=== PATIENT | female | born 1985 | race Caucasian/White ===

== ENCOUNTER 2018-03-07 18:07 | Day surgery (SDC) | payer BC ==
[2018-03-07 18:43] VITALS: BP 115/78; TEMP 98.6; BMI 47.2
[2018-03-07 21:09] LABS: Amnisure Test No Membranes Rupture (No Rupture)
[2018-03-07 21:10] LABS: Amnisure Internal Control QC ACCEPTABLE (ACCEPTABLE)
--- NOTE | 2018-03-08 02:26 | PRG ---
DATE OF SERVICE: 03/07/2018 PRIMARY COLLATERAL CLERK: Dr. Rod Fung. CHIEF COMPLAINT: Abdominal pain and leakage of fluid. HISTORY OF PRESENT ILLNESS: The patient is a 32-year-old G4, P2 female with an intrauterine at 37 weeks and 5 days, presenting with 1-day history of leakage of fluid and increased abdominal pain. The patient reports that she was going to the bathroom and felt like she had a lot more fluid leak out than just what she thought she was seeing. The patient has since not had any more leakage of fluids, but is here for evaluation. She also reports she has been having uterine contractions for the last several weeks and just became more intense today. The patient denies fever. She does report headache. Denies falls, chest pain. She does report intermittent shortness of breath that she attributes to the present state. Reports nausea with vomiting in the morning, which has been present throughout her . Reports intermittent constipation. Denies diarrhea. Denies any rashes, hip problems, knee problems or muscle weakness. Denies vaginal bleeding, however, reports for leakage of fluid and denies urinary urgency or frequency. PAST MEDICAL HISTORY: History of depression. PAST SURGICAL HISTORY: She has had one prior , tubal ligation with subsequent reversal and a tonsillectomy. SOCIAL HISTORY: She denies drug, alcohol, or tobacco use. ALLERGIES: NO KNOWN DRUG ALLERGIES. MEDICATIONS: Zoloft and vitamins. OB LABS: Blood type is 0 positive. RPR is nonreactive, HIV is nonreactive as well in the third trimester. Her 1-hour Glucola was 108. Antibody screen is negative. She is rubella immune. Hepatitis B surface antigen is negative in the first trimester. RPR is negative in the first trimester. HIV is negative in the first trimester. REVIEW OF SYSTEMS: Per HPI. PHYSICAL EXAMINATION: VITAL SIGNS: Blood pressure 120/76, heart rate of 109, respiratory rate of 18, temperature 98.6. GENERAL: She appears to be in no acute distress. She is alert and oriented, cooperative, and pleasant to interact with. HEAD: Normocephalic, atraumatic. LUNGS: Clear to auscultation bilaterally. HEART: Regular rate and rhythm. ABDOMEN: Soft, gravid, and nontender. EXTREMITIES: Nontender, nonedematous. CERVICAL: Per nursing staff, fingertip thick and -4 station. heart tracing for abdominal pain in , fetus noted to have baseline in the 130s with moderate long-term variability, positive 15 x 15 accelerations, and no decelerations. Tocometer shows occasional contractions about every 10 to 15 minutes with some irritability. AmniSure test is negative, reported by her primary OB this evening are bile acids that were drawn for excessive itching and noted to be borderline, otherwise has normal LFTs. ASSESSMENT AND PLAN: The patient is a 32-year-old female with an intrauterine at 37 weeks and 5 days, who is presenting with uterine contractions and leakage of fluids. There is no evidence at this time of rupture of membranes or labor. The patient is being discharged to home. Dr. Fung has been made aware and is scheduling her in the near future. Fetus is reassuring and reactive. Job ID: [id number]
== END 2018-03-07 21:32 | disposition home health service (06) ==
LOC: L&D/OP 18:07
PROVIDERS: ATTEND Obstetrics & Gynecology
DX: O47.1 False labor at or after 37 completed weeks of gestation (principal); Z3A.37 37 weeks gestation of pregnancy
CPT/HCPCS: 84112; 99283

== ENCOUNTER 2018-03-09 05:03 | Inpatient (IN) | payer BC ==
[2018-03-09] MEDS ORDERED: CEFAZOLIN/Water 2 GM/20 ML SYRINGE SLOW IVP SCH (05:54)
[2018-03-09] MEDS ORDERED: Ondansetron PF 4 MG/2 ML Vial IVP PRN ×3 (05:54→13:00)
[2018-03-09] MEDS ORDERED: Bicitra 30 ML UDCUP PO SCH (05:54)
[2018-03-09] MEDS ORDERED: Promethazine HCl 25 MG/ML VIAL IM PRN ×2 (05:54→08:56)
[2018-03-09] MEDS ORDERED: CEFAZOLIN 2 GM/50 ML BAG IV SCH (06:15)
[2018-03-09 06:21] LABS: Hemoglobin 11.7 g/dL (12.0-16.0); Mean Corpuscular HGB CONC 32.8 g/dL (32.0-36.0); Mean Corpuscular Hemoglobin 28.9 pg (27.0-31.0); Mean Corpuscular Volume 88.2 fL (78.0-98.0); Mean Platelet Volume 9.2 fL (7.4-10.4); Platelet Count 216 thou/uL (130-400); RBC Distribution Width 13.5 % (11.5-14.5); Red Blood Cell (RBC) Count 4.06 mill/uL (4.20-5.40); White Blood Cell (WBC) Count 10.3 thou/uL (4.8-10.8)
[2018-03-09 06:29] VITALS: BMI 47.2
[2018-03-09 06:44] LABS: HBSAg Index 0.23 S/CO (0-0.99); Hep B Surf Ag Non-Reactive S/CO (NonReactive); Syphilis Antibody Nonreactive (Nonreactive); Syphilis Antibody Index 0.02 S/CO (<1.00 Non-Reactive)
[2018-03-09] MEDS ORDERED: Fentanyl 100 MCG/2 ML VIAL ONE (06:44)
[2018-03-09] MEDS ORDERED: Morphine PF 1 MG/ML SYR ONE (06:44)
[2018-03-09] MEDS ORDERED: Succinylcholine Chloride 20 MG/ML 10 ml SYRINGE FS ONE (06:45)
[2018-03-09] MEDS ORDERED: Ondansetron PF 4 MG/2 ML Vial ONE ×2 (06:45→11:20)
[2018-03-09] MEDS ORDERED: Oxytocin 10 UNITS/ML VIAL ONE ×3 (06:45→08:38)
[2018-03-09] MEDS ORDERED: Ketorolac Tromethamine 30 MG/ML VIAL ONE ×2 (06:45→11:20)
[2018-03-09] MEDS ORDERED: ePHEDrine/0.9% NaCl/PF SYRINGE 50 mg/10 ml ONE ×4 (06:45→11:20)
[2018-03-09] MEDS ORDERED: Bupivacaine 0.75% W/DEXTROSE 8.25% 2 ML AMP ONE (06:45)
[2018-03-09] MEDS ORDERED: Lidocaine 1% PF 5 ML VIAL ONE (06:46)
[2018-03-09] MEDS ORDERED: PHENYLEPHRINE-NS 100 MCG/ML 10 ML SYRINGE ONE ×2 (06:47→11:20)
[2018-03-09] MEDS: Lactated Ringer's 1,000 ML IV SCH ×2 (07:28→13:13)
--- NOTE | 2018-03-09 07:36 | PDOC.LDHP ---
Labor and Delivery H&P Chief complaint: scheduled section HPI: Pt is a 32yo @ 38 weeks here for RCS. Pt was scheduled for 39 weeks but over the last week has complained of increased itching all over her body, reports rubbing lip balm on her neck in effort to help the itching, and with a bile acid of 10 last week. Yesterday in the office the patient had BP 140/90 on intake and then again on repeat BP. With elevated BP and progressive itching we discussed the indication for delivery. Current gestational age (weeks): 38 Due date: 03/23/18 Grav: 4 Para: 2 OB History Details: hx of macrosomia, hx of x 1 and CS x 1 hx of BTL w reversal and spont Current complications: gestational hypertension, other (cholestasis) Abnormal US findings: No Past Medical History: depression obesity Current medications: pre-quentin vitamins, other (zoloft 100mg a day) Previous surgical history: low tranverse CS, other (BTL and BTL reversal) Allergies/Adverse Reactions: Allergies Allergy/AdvReac Type Severity Reaction Status Date / Time No Known Allergies Allergy Verified 03/09/18 06:30 Social history: none - Physical Exam Vital signs reviewed and normal: yes General: resting Heart: RRR Lungs: CTAB Abdomen: gravid Extremeties: no edema FHT: variability present - OB Labs Blood type: O RH: positive Antibody Screen: negative HIV: negative RPR: negative HEPSAg: negative 1 hour GCT: negative GBS: negative Rubella: immune - Assessment L&D Assessment: scheduled repeat section - Plan Plan: admit to L&D, to OR for section, informed consent obtained, anesthesia consult for pain management -: A/P: 32yo @ 38 weeks with hx of macrosomia, desires RCS, cholestasis of and suspected GHTN.
--- NOTE | 2018-03-09 08:33 | PDOC.OPDEL ---
OB Operative/Delivery Note Delivery Dr/Surgeon: Kenton Assist: Shelia Pre-Delivery Diagnosis: scheduled section (cholestasis of preg, elevated BP @ 38 weeks) Procedure/Post Delivery Dx: repeat low transverse CS Weeks gestation: 38 Anesthesia: spinal - Findings A Sex: female Weight: 9 lb 14 oz - 1 min: 8 - 5 min: 9 - Additional Findings/Plan Placenta delivered: spontaneous findings: low transverse hysterotomy without extension, normal uterus, normal tubes, normal ovaries Estimated blood loss: 750ml Compilations/Other Findings: Vacuum assisted delivery of head Post delivery plan: routine recovery
[2018-03-09] MEDS ORDERED: Naloxone HCl 0.4 mg/ml Vial IVP PRN ×2 (08:56)
[2018-03-09] MEDS ORDERED: HYDROmorphone 2 MG/ML VIAL SLOW IVP PRN (08:56)
[2018-03-09] MEDS ORDERED: Naloxone HCl 0.4 mg/ml Vial IV PRN (08:56)
[2018-03-09] MEDS ORDERED: diphenhydrAMINE 50 MG/ML VIAL IVP PRN (08:56)
[2018-03-09] MEDS ORDERED: Promethazine HCl 25 MG SUPP PR PRN (08:56)
[2018-03-09] MEDS ORDERED: L&D-Morphine 4 MG/ML VIAL SLOW IVP PRN (08:56)
[2018-03-09] MEDS ORDERED: Ketorolac Tromethamine 30 MG/ML VIAL IVP PRN (08:56)
[2018-03-09] MEDS ORDERED: Meperidine HCl/PF 25 MG/ML VIAL SLOW IVP PRN (08:56)
[2018-03-09] MEDS ORDERED: Ondansetron HCl/PF 4 MG/2 ML Vial IVP PRN (08:56)
[2018-03-09] MEDS ORDERED: Eucerin (Mineral Oil/Petrolatum,White) 30 gm Jar TOP PRN (08:56)
[2018-03-09] MEDS ORDERED: Communication Order-Pharmacy FS SCH (09:00)
[2018-03-09] MEDS ORDERED: Ketorolac Tromethamine 30 MG/ML VIAL IVP SCH (09:00)
[2018-03-09] MEDS ORDERED: HYDROcodone/Acetaminophen 5/325 mg Tablet PO PRN ×2 (13:00)
[2018-03-09] MEDS ORDERED: Adacel (T-DAP) 0.5 ML VIAL IM ONE (13:00)
[2018-03-09] MEDS ORDERED: diphenhydrAMINE 25 MG CAP PO PRN (13:00)
[2018-03-09] MEDS ORDERED: Meperidine HCl/PF 25 MG/ML VIAL IM PRN (13:00)
[2018-03-09] MEDS ORDERED: NS / Oxytocin 40 units/1000ml 1,000 ML IV SCH (13:00)
[2018-03-09] MEDS ORDERED: Lanolin Ointment 7 GM TUBE TOP PRN (13:00)
[2018-03-09] MEDS ORDERED: Bisacodyl 10 MG SUPP PR PRN (13:00)
[2018-03-09] MEDS ORDERED: Docusate Calcium (SURFAK) 240 MG CAP PO SCH (13:15)
[2018-03-09] MEDS ORDERED: Prenatal Vitamin 1 TAB PO SCH (13:15)
[2018-03-09] MEDS ORDERED: Ibuprofen 800 MG TAB PO SCH (14:00)
[2018-03-09] MEDS: Ferrous Sulfate 325 MG TAB PO SCH (14:23)
--- NOTE | 2018-03-09 17:40 | OP ---
DATE OF PROCEDURE: 03/09/2018 PREOPERATIVE DIAGNOSES: 1. A 32-year-old, G4, P2-0-1-2, at 38 weeks with previous section and history of macrosomia. 2. Cholestasis of . 3. Elevated blood pressures at term. POSTOPERATIVE DIAGNOSES: 1. A 32-year-old, G4, P2-0-1-2, at 38 weeks with previous section and history of macrosomia. 2. Cholestasis of . 3. Elevated blood pressures at term. PROCEDURE PERFORMED: Repeat low-transverse section with delivery assisted by vacuum cup. DISTRICT LEADER: Melissa Bass MD ANESTHESIA: Spinal. COMPLICATIONS: None. ESTIMATED BLOOD LOSS: 750 mL. FINDINGS: 1. Low transverse hysterotomy without extension. 2. Vigorous female , Apgars 8 and 9, weight 9 pounds and 14 ounces, to nursery. 3. Normal appearing uterus, tubes, and ovaries bilaterally. 4. No intraabdominal adhesive disease. 5. Surgical site, hemostatic. 6. Fundus firm after delivery of placenta and closure of hysterotomy. DESCRIPTION OF PROCEDURE: The patient was taken back to the OR with IV fluids running. She sat up at the bedside for spinal anesthesia and was placed in dorsal supine position with a left lateral tilt after the spinal anesthesia was placed. Preciado catheter was placed using sterile technique. A 2 g of Ancef were given. The abdomen was prepped and draped in normal fashion for section. The surgeons were scrubbed in. The abdomen was tested and the anesthesia was found to be adequate. A Pfannenstiel skin incision was made with a scalpel. The skin incision was carried down through the subcutaneous tissue to the fascia. Once the fascia was reached, it was incised in the midline, extended superolaterally using curved Yu scissors. Scout clamps were placed at the superior border of the fascia, which was sharply and bluntly dissected off the rectus abdominis muscles. This was also completed at the inferior edge of the fascia, dissecting off the rectus abdominis muscles to allow a quick space for delivery of the . The rectus muscles were bluntly in the midline. The peritoneum was blunted entered and stretched laterally. An Fernando O retractor was placed into the peritoneal cavity for retraction, visualization, and protection of the wound. A bladder flap was created and the bladder was dissected away from the planned hysterotomy site. Low transverse hysterotomy was made with a scalpel. The hysterotomy was bluntly entered and stretched using a Crede maneuver. Amniotomy was performed with copious clear fluid noted. Due to maternal obesity, fundal pressure was not effective in bringing the infant's head out of the hysterotomy. For this reason, a mushroom-shaped vacuum cup was placed over the flexion point of the head. With gentle traction, the head was delivered without difficulty through the hysterotomy. There was one pop-off due to poor suction contact on the first application. After the head was delivered, the shoulders, and the body were delivered without difficulty. The nose and mouth were suctioned. The cord was doubly clamped and cut and the infant was handed off to the special care nurses in attendance. Cord blood was collected. The placenta was delivered. The uterus was exteriorized and massage firm and cleared of clot and debris. The uterus was returned to the abdominal cavity. The hysterotomy was inspected with no extension noted. The hysterotomy was then closed with Monocryl suture in a running locked fashion. After the hysterotomy was closed, it was inspected with no areas of bleeding noted. The fundus was palpated and noted to be firm. The Fernando O retractor was removed from the abdominal cavity and the first count was current. The muscle and fascia were inspected with no areas of bleeding noted. The fascia was reapproximated with PDS suture from corner to corner and tied subsequently in the midline. Subcutaneous tissue was then irrigated and dried. It was inspected with no bleeding noted. Subcutaneous tissue was reapproximated with plain gut suture. The skin was closed with 4-0 Monocryl and dressed with Dermabond dressing. The patient tolerated the procedure well. The counts were correct and there were no complications. Job ID: [id number]
[2018-03-09] MEDS: Ibuprofen 800 MG TAB PO SCH (20:35)
[2018-03-09] MEDS: Docusate Calcium (SURFAK) 240 MG CAP PO SCH (20:36)
[2018-03-09] MEDS: Simethicone Chewable 80 MG TAB PO PRN (20:36)
[2018-03-10] MEDS: Ibuprofen 800 MG TAB PO SCH ×2 (04:23→14:59)
--- NOTE | 2018-03-10 07:24 | PDOC.PP ---
Post Progress Note Post Day #: 1 Subjective: Patient denies any complaints. She is ambulating, voiding, and tolerating PO well. She reports she hasn't eaten a full meal of solid food yet, but plans to do this for breakfast. She reports some mild abdominal pain, mostly with movement. Reports minimal vaginal bleeding. She is trying to breast feed, however her baby is in the NICU and is not always latching well. She denies flatus. PO intake tolerated: yes Flatus: no Ambulation: yes Vital Signs (12 hours) Temp Pulse Resp BP Pulse Ox 03/10/18 04:00 97.8 F 91 16 114/67 03/09/18 23:56 98.2 F 92 16 110/59 L 03/09/18 23:00 98.2 F 95 20 110/60 03/09/18 20:00 97.7 F 95 20 121/56 L 96 Weight Weight 124.738 kg - Physical Examination General: NAD Cardiovascular: no m/r/g, RRR Respiratory: clear to auscultation bilaterally, non-labored breathing Abdominal: + bowel sounds, lochia (minimal), no distention, appropriately TTP Fundus firm & at: 1 cm below the umbilicus Skin: CS incision dry & intact, no rash Neurological: no gross focal deficits Psychiatric: A&Ox3, normal affect Result Diagrams: 03/09/18 06:01 Additional Labs: Post Labs Blood Type O POSITIVE 03/09/18 06:30 Hep Bs Antigen Non-Reactive S/CO (NonReactive) 03/09/18 06:01 (1) Term delivered Code(s): O80 - ENCOUNTER FOR FULL-TERM UNCOMPLICATED DELIVERY Status: Acute Comment: 32 y/o delivered via rLTCS at 38 WGA -Continue routine post- care -Pain control with ibuprofen and norco prn -Encourage ambulation -Encourage breast feeding -ADAT (2) Cholestasis during Code(s): O26.619 - LIVER AND BILIARY TRACT DISORD IN , UNSP TRIMESTER; K83.1 - OBSTRUCTION OF BILE DUCT Status: Acute Qualifiers: Trimester: unspecified trimester Qualified Code(s): O26.619 - Liver and biliary tract disorders in , unspecified trimester; K83.1 - Obstruction of bile duct Comment: s/p delivery
[2018-03-10] MEDS: Ferrous Sulfate 325 MG TAB PO SCH ×2 (07:32→16:29)
[2018-03-10 08:48] LABS: Hemoglobin 9.3 g/dL (12.0-16.0); Mean Corpuscular HGB CONC 34.1 g/dL (32.0-36.0); Mean Corpuscular Hemoglobin 30.7 pg (27.0-31.0); Mean Corpuscular Volume 90.1 fL (78.0-98.0); Platelet Count 190 thou/uL (130-400); RBC Distribution Width 13.6 % (11.5-14.5); Red Blood Cell (RBC) Count 3.01 mill/uL (4.20-5.40); White Blood Cell (WBC) Count 10.4 thou/uL (4.8-10.8)
[2018-03-10] MEDS: Prenatal Vitamin 1 TAB PO SCH (08:58)
[2018-03-10] MEDS: Docusate Calcium (SURFAK) 240 MG CAP PO SCH (08:58)
[2018-03-11] MEDS: Simethicone Chewable 80 MG TAB PO PRN (00:49)
[2018-03-11] MEDS: Docusate Calcium (SURFAK) 240 MG CAP PO SCH ×2 (00:49→08:39)
[2018-03-11] MEDS: Ibuprofen 800 MG TAB PO SCH ×4 (00:49→14:28)
[2018-03-11 05:01] VITALS: TEMP 98.2
[2018-03-11] MEDS: Prenatal Vitamin 1 TAB PO SCH (08:39)
[2018-03-11] MEDS: Ferrous Sulfate 325 MG TAB PO SCH (08:39)
[2018-03-11 09:02] VITALS: BP 120/74
== END 2018-03-11 15:45 | disposition home or self-care (01) | DRG 786 ==
LOC: L&D 05:03 → 3SW 13:09
PROVIDERS: ADMIT Obstetrics & Gynecology; ATTEND Obstetrics & Gynecology
PROC: 10D00Z1 Extraction of Products of Conception, Low, Open Approach (ICD-10-PCS; principal; 2018-03-09)
DX: O34.211 Maternal care for low transverse scar from previous cesarean delivery (principal); K83.1 Obstruction of bile duct; O26.613 Liver and biliary tract disorders in pregnancy, third trimester; Z3A.38 38 weeks gestation of pregnancy; Z37.0 Single live birth; R03.0 Elevated blood-pressure reading, without diagnosis of hypertension; O26.893 Other specified pregnancy related conditions, third trimester
CPT/HCPCS: 36415; 51702; 80053; 84112; 85025; 85027; 86780; 86850; 86900; 86901; 87340; 99283; J1885; J2001; J2274; J2405; J2590; J3010; J3490

== ENCOUNTER 2018-12-27 13:19 | Outpatient (CLI) | payer BC | END 2018-12-27 13:20 | disposition home or self-care (01) | LOC: DTY/OP 13:19 | PROVIDERS: ATTEND Surgery | DX: E66.01 Morbid (severe) obesity due to excess calories (principal) | CPT/HCPCS: 97802 ==

== ENCOUNTER 2019-03-15 10:16 | Outpatient (CLI) | payer BC ==
[2019-03-15 17:27] LABS: #Eosinphils 0.2 thou/uL (0.0-0.7); #Lymphocytes 2.2 thou/uL (1.20-3.40); #Monocytes 0.8 thou/uL (0.11-0.59); #Neutrophils 5.9 thou/uL (1.40-6.50); %Basophils 0.4 % (0.0-1.0); %Eosinophils 2.5 % (0.0-10.0); %Lymphocytes 23.5 % (21.0-51.0); %Monocytes 8.8 % (0.0-10.0); %Neutrophils 64.9 % (42.0-75.0); Hemoglobin 11.9 g/dL (12.0-16.0); Mean Corpuscular HGB CONC 32.8 g/dL (32.0-36.0); Mean Corpuscular Hemoglobin 26.5 pg (27.0-31.0); Mean Corpuscular Volume 80.9 fL (78.0-98.0); Mean Platelet Volume 7.5 fL (7.4-10.4); Platelet Count 362 thou/uL (130-400); RBC Distribution Width 13.8 % (11.5-14.5); White Blood Cell (WBC) Count 9.2 thou/uL (4.8-10.8)
[2019-03-15 17:35] LABS: Hemoglobin A1c 5.4 % (4.0-6.0)
[2019-03-15 17:51] LABS: ALT (SGPT) 16 U/L (8-55); AST (SGOT) 20 U/L (5-34); Albumin 4.6 g/dL (3.5-5.0); Alkaline Phosphatase 78 U/L (40-110); Anion Gap 13 mmol/L (10-20); BUN (Urea Nitrogen) 23 mg/dL (7.0-18.7); Bilirubin, Direct 0.1 mg/dL (0.1-0.3); Bilirubin, Total 0.3 mg/dL (0.2-1.2); Calc. Creatinine Clearance 0 mL/min (70-130); Calcium 9.8 mg/dL (7.8-10.44); Carbon Dioxide 26 mmol/L (22-29); Chloride 102 mmol/L (98-107); Estimated GFR-MDRD 79; Glucose 98 mg/dL (70-105); Protein, Total 7.6 g/dL (6.0-8.3); Sodium 137 mmol/L (136-145)
[2019-03-15 17:58] LABS: BHCG - Serum Negative (NEGATIVE); Pregs Control Background? CLEAR/WHITE (CLR/WHITE); Pregs Control Bar Appear? YES (CONTROL BAR)
--- NOTE | 2019-03-15 17:58 | RAD ---
Chest 2 views HISTORY: Preop. FINDINGS: Cardiac silhouette and pulmonary vasculature are unremarkable. Mediastinum is midline. No c onfluent airspace consolidation, pneumothorax, or pleural fluid. IMPRESSION: Normal exam.
== END 2019-03-15 10:17 | disposition home or self-care (01) ==
LOC: LABBT 10:16
PROVIDERS: ATTEND Surgery
DX: Z01.818 Encounter for other preprocedural examination (principal); E66.01 Morbid (severe) obesity due to excess calories
CPT/HCPCS: 71046; 80053; 80076; 83036; 84703; 85025

== ENCOUNTER 2019-03-15 17:00 | Inpatient (IN) | payer BC ==
[2019-03-15 17:19] VITALS: BMI 42.7
[2019-03-28] MEDS ORDERED: Heparin 5,000 UNITS/ML VIAL ONE (06:33)
[2019-03-28] MEDS ORDERED: Bupivacaine 0.25% HCL 30 ML VIAL ONE ×2 (06:34→06:38)
[2019-03-28] MEDS ORDERED: EPINEPHrine 1 MG/ML AMP ONE (06:34)
[2019-03-28] MEDS ORDERED: Scopolamine 1.5 mg/72 hour Patch ONE (07:09)
[2019-03-28] MEDS ORDERED: Famotidine/PF 20 mg/2ml Vial ONE (07:10)
[2019-03-28] MEDS ORDERED: Midazolam HCl 2 mg/2 ml Vial ONE (07:10)
[2019-03-28] MEDS ORDERED: Fentanyl 100 MCG/2 ML VIAL ONE (07:11)
[2019-03-28] MEDS ORDERED: diphenhydrAMINE 50 MG/ML VIAL IVP PRN ×2 (08:51→09:13)
[2019-03-28] MEDS ORDERED: hydrALAZINE 20 MG/ML VIAL SLOW IVP PRN (08:51)
[2019-03-28] MEDS ORDERED: Ondansetron PF 4 MG/2 ML Vial IVP PRN ×2 (08:51→09:13)
[2019-03-28] MEDS ORDERED: Insulin Regular 300 UNITS/3 ML VIAL SC PRN (08:51)
[2019-03-28] MEDS ORDERED: Dextrose 50% Abboject 50 ML SYRINGE SLOW IVP PRN (08:51)
[2019-03-28] MEDS ORDERED: Dextrose 5% in Water 1,000 ML IV PRN (08:51)
[2019-03-28] MEDS ORDERED: Hydrocodone-Acetamin 15 ML UDCUP PO PRN (08:51)
[2019-03-28] MEDS ORDERED: Promethazine HCl 25 MG/ML VIAL IM PRN ×3 (08:51→09:13)
[2019-03-28] MEDS ORDERED: Promethazine HCl 25 MG/ML VIAL SLOW IVP PRN (09:11)
[2019-03-28] MEDS ORDERED: HYDROmorphone 2 MG/ML VIAL SLOW IVP PRN (09:11)
[2019-03-28] MEDS ORDERED: Meperidine HCl/PF 25 MG/ML VIAL SLOW IVP PRN (09:11)
[2019-03-28] MEDS ORDERED: fentaNYL Citrate/PF 2,000 MCG in Sodium Chloride 0.9% 60 ML IV PRN (09:13)
[2019-03-28] MEDS ORDERED: diphenhydrAMINE 50 MG/ML VIAL IM PRN (09:13)
[2019-03-28] MEDS ORDERED: Naloxone HCl 0.4 mg/ml Vial IV PRN (09:13)
[2019-03-28] MEDS ORDERED: Zolpidem Tartrate 5 MG TAB PO PRN (09:13)
[2019-03-28] MEDS ORDERED: diphenhydrAMINE 25 MG CAP PO PRN (09:13)
[2019-03-28] MEDS ORDERED: Communication Order-Pharmacy FS PRN (09:15)
[2019-03-28] MEDS ORDERED: Promethazine HCl 25 MG/ML VIAL ONE (09:40)
[2019-03-28] MEDS: Ketorolac Tromethamine 30 MG/ML VIAL IVP SCH ×2 (11:21→17:32)
[2019-03-28] MEDS: 1/2 NS w/KCL 20 mEq 1,000 ML IV SCH ×3 (11:23→21:19)
[2019-03-28] MEDS: Pantoprazole 40 MG VIAL IVP SCH (11:31)
[2019-03-28] MEDS: Enoxaparin Sodium 40 MG/0.4 ML SYRINGE SC SCH (11:31)
--- NOTE | 2019-03-28 12:58 | HP ---
CHIEF COMPLAINT: Morbid obesity. HISTORY OF PRESENT ILLNESS: The patient is a 33-year-old female, who has been morbidly obese for many years, attempted multiple weight loss programs without success. She is here for sleeve gastrectomy. PAST MEDICAL HISTORY: Significant for depression, anxiety, seasonal allergies, and diabetes. PAST SURGICAL HISTORY: Tonsillectomy, section, and tubal reversal. MEDICATIONS: 1. BD pen needle insulin. 2. Tradjenta. FAMILY HISTORY: Skin cancer, hearing loss, and hypothyroidism. SOCIAL HISTORY: She is . No alcohol or tobacco. ALLERGIES: SHE HAS NO KNOWN DRUG ALLERGIES. PHYSICAL EXAMINATION: VITAL SIGNS: Height 64, weight 253, body mass index 43.5. GENERAL: Well-developed, well-nourished female, in no apparent distress. HEENT: No alopecia. Pupils equal, round, and reactive. Extraocular motor intact. Pharynx clear. Good dentition. NECK: Supple. No thyroid masses. No carotid bruits. LUNGS: Clear. HEART: Regular rate and rhythm. BREASTS: No palpable breast masses. No lymphadenopathy. No skin changes. ABDOMEN: Soft, nondistended, and nontender. No masses or hernias. EXTREMITIES: Good pulses. No pedal edema. ASSESSMENT: Morbid obesity with comorbidities. PLAN: Laparoscopic sleeve gastrectomy. CONSENT: I have discussed planned procedure as well as risk of bleeding, infection, injury to esophagus, spleen, loops of bowel, need to open, also leakage from staple line. She understands and gives informed consent. Job ID: [id number]
[2019-03-28] MEDS ORDERED: Ketorolac Tromethamine 30 MG/ML VIAL ONE (13:51)
[2019-03-28] MEDS ORDERED: Glycopyrrolate 0.2 MG/ML 5 ML SYRINGE ONE (13:51)
[2019-03-28] MEDS ORDERED: Dexamethasone 20 MG/5 ML VIAL ONE (13:51)
[2019-03-28] MEDS ORDERED: Lidocaine 1% PF 5 ML VIAL ONE (13:51)
[2019-03-28] MEDS ORDERED: PROPOFOL 200 MG/20 ML VIAL ONE (13:51)
[2019-03-28] MEDS ORDERED: Rocuronium Bromide 10 MG/ML (10ML VIAL) ONE (13:51)
[2019-03-28] MEDS ORDERED: Ondansetron PF 4 MG/2 ML Vial ONE (13:51)
--- NOTE | 2019-03-28 15:11 | OP ---
DATE OF PROCEDURE: 03/28/2019 PREOPERATIVE DIAGNOSIS: Morbid obesity. PROCEDURES PERFORMED: Laparoscopic sleeve gastrectomy, esophagogastroscopy. INDICATIONS: A 33-year-old female morbidly obese, who has attempted multiple weight loss programs without success. FINDINGS: A 38-[place] bougie used. DESCRIPTION OF PROCEDURE: After informed consent was obtained, the patient was taken to the operating room, given general endotracheal anesthesia and placed in supine position. Abdomen was prepped and draped in usual fashion. Local anesthesia was infiltrated subcutaneously and deep, and a 12 mm incision was performed approximately 8-inch below the xiphoid slight to left. Veress needle inserted. Drop test performed. Pneumoperitoneum was created to a volume of 2 L of carbon dioxide. Utilizing a bladeless 12 mm trocar and 0-degree laparoscope, direct visual entry into the abdominal cavity was performed. Pneumoperitoneum was created to a pressure of 15 mmHg, and the patient was placed in steep reverse Trendelenburg position. Wendy liver retractor was inserted. Left lobe of the liver retracted superiorly. Pylorus identified a 12 mm port placed on the right beneath it and two 12s placed in left subcostal. The omentum was taken off the greater curvature 5 cm from the pylorus utilizing the LigaSure. Short gastrics divided with LigaSure, and left crura defined with LigaSure. A 38-[place] bougie was inserted, directed into the antrum. The linear 60 mm green load stapler was used to divide the antrum to the bougie, gold load along the bougie, and a series of blues through the angle of His. Intraoperative endoscopy was performed. The video endoscope was inserted under direct vision. Staple line inspected. There was no bleeding. Staple line was then tested by inflating the new stomach with pressurized air under water, there was no air leak. Stomach was decompressed. Scope was removed. The remnant stomach was removed from the abdomen through the left lateral port site. The fascia was closed with 0 Vicryl suture and the GraNee needle. Trocars and retractors were removed. The skin was closed with interrupted 4-0 Rapide. Dermabond was applied. The patient tolerated the procedure well, transferred to Recovery in good condition. Sponge and needle count verified correct x2. Job ID: [id number]
[2019-03-28] MEDS: CEFAZOLIN 2 GM in Premix Bag 1 BAG IVPB SCH ×2 (15:31→21:20)
[2019-03-29] MEDS: Ketorolac Tromethamine 30 MG/ML VIAL IVP SCH ×3 (01:00→12:25)
[2019-03-29 05:37] LABS: #Lymphocytes 2.3 thou/uL (1.20-3.40); #Neutrophils 7.4 thou/uL (1.40-6.50); %Basophils 0.4 % (0.0-1.0); %Eosinophils 0.3 % (0.0-10.0); %Lymphocytes 21.3 % (21.0-51.0); %Monocytes 9.2 % (0.0-10.0); %Neutrophils 68.7 % (42.0-75.0); Hemoglobin 10.9 g/dL (12.0-16.0); Mean Corpuscular HGB CONC 31.9 g/dL (32.0-36.0); Mean Corpuscular Volume 81.7 fL (78.0-98.0); Mean Platelet Volume 8.1 fL (7.4-10.4); Platelet Count 280 thou/uL (130-400); RBC Distribution Width 13.6 % (11.5-14.5); Red Blood Cell (RBC) Count 4.21 mill/uL (4.20-5.40); White Blood Cell (WBC) Count 10.7 thou/uL (4.8-10.8)
[2019-03-29 06:00] LABS: Anion Gap 10 mmol/L (10-20); BUN (Urea Nitrogen) 10 mg/dL (7.0-18.7); Calc. Creatinine Clearance 194 mL/min (70-130); Calcium 8.8 mg/dL (7.8-10.44); Carbon Dioxide 25 mmol/L (22-29); Chloride 106 mmol/L (98-107); Estimated GFR-MDRD Greater than 90; Glucose 83 mg/dL (70-105); Potassium 4.1 mmol/L (3.5-5.1); Sodium 137 mmol/L (136-145)
[2019-03-29] MEDS ORDERED: FLU VACC QS2019-20(6MOS UP)/PF 60 MCG/0.5 ML SYRINGE IM ONE (09:00)
--- NOTE | 2019-03-29 09:04 | RAD ---
XR UGI Single Contrast No Air History: Postop gastric vertical sleeve Comparison: None. Findings: Patient was given 30 mL of gastric of contrast. There is transit through the GE junction in to the sleeve extending into the proximal small bowel. No evidence of leak. Impression: No evidence for leak. Fluoroscopy time: 0.5 minutes
[2019-03-29] MEDS: Enoxaparin Sodium 40 MG/0.4 ML SYRINGE SC SCH (09:20)
[2019-03-29] MEDS: Pantoprazole 40 MG VIAL IVP SCH (09:20)
[2019-03-29] MEDS ORDERED: GASTROGRAFIN 30 ML BOT ONE (11:45)
[2019-03-29 12:00] VITALS: BP 127/84; TEMP 98.1
== END 2019-03-29 14:40 | disposition home or self-care (01) | DRG 621 ==
LOC: SURG A 03-28 05:50 → SURG B 03-28 11:05
PROVIDERS: ADMIT Surgery; ATTEND Surgery
PROC: 0DB64Z3 Excision of Stomach, Percutaneous Endoscopic Approach, Vertical (ICD-10-PCS; principal; 2019-03-28)
DX: E66.01 Morbid (severe) obesity due to excess calories (principal); Z68.41 Body mass index [BMI] 40.0-44.9, adult; F41.9 Anxiety disorder, unspecified; F32.9 Major depressive disorder, single episode, unspecified; E11.9 Type 2 diabetes mellitus without complications; J30.2 Other seasonal allergic rhinitis; F17.200 Nicotine dependence, unspecified, uncomplicated; Z79.4 Long term (current) use of insulin
CPT/HCPCS: 36415; 36416; 74241; 80048; 85025; 88307; 88312; 90471; 90686; C9113; G0008; J0131; J0171; J0690; J1100; J1644; J1650; J1885; J2001; J2250; J2405; J2550; J2704; J3010; J3480; S0020; S0028